=== PATIENT | female | born 1985 | race Caucasian/White ===

== ENCOUNTER → 2020-12-09 | Outpatient (CLI) | payer OTHER ==
--- NOTE | 2020-12-10 11:21 | Diagnostic Imaging Report ---
INDICATION: Routine screening. COMPARISON: No prior mammograms are available for comparison. This is a baseline study. 2-D and 3-D bilateral screening mammography was performed with CAD. Both breasts are heterogeneously dense, limiting the sensitivity of mammography. No mass or malignant appearing microcalcifications are seen. Axillae are unremarkable. IMPRESSION: BI-RADS Category 1 No mammographic features suspicious for malignancy are identified. ACR BI-RADS Category 1: Negative. Result letter will be mailed to the patient. Note: At least 10% of breast cancer is not imaged by mammography. Dictated by: Dictated on workstation # [id number]
== END ==
LOC: RAD 15:31
PROVIDERS: ATTEND Obstetrics & Gynecology
DX: Z12.31 Encounter for screening mammogram for malignant neoplasm of breast (principal)
CPT/HCPCS: 77063; 77067

== ENCOUNTER 2022-05-30 05:39 | Outpatient (CLI) | payer OTHER ==
[~2022-05-30] VITALS: Ht 167.7 cm; Wt 71.5 kg
== END 2022-05-30 12:38 | disposition home or self-care (01) ==
LOC: PREOP 05:39
PROVIDERS: ATTEND Obstetrics & Gynecology
DX: Z01.818 Encounter for other preprocedural examination (principal)

== ENCOUNTER 2022-06-01 05:53 | Day surgery (SDC) | payer OTHER ==
[~2022-06-01] VITALS: Ht 167 cm; Wt 71.5 kg
[2022-06-01] VITALS (9 sets, daily range): BP systolic 108–119; BP diastolic 69–90
[2022-06-01] MEDS ORDERED: ceFAZolin INJECTION 1,000 MG VIAL IV ONE (06:15)
[2022-06-01] MEDS ORDERED: ceFAZolin 1 GM/NS 50 ML (SDC/OR ONLY) IV ONE ×2 (06:30)
[2022-06-01 06:37] LABS: BASOPHILS % (AUTO) 1 % (0-10); EOSINOPHILS # (AUTO) 0.2 10^3/uL (0.0-0.3); EOSINOPHILS % (AUTO) 4 % (0-10); HEMATOCRIT 36 % (35-52); HEMOGLOBIN 12.3 g/dL (11.5-16.0); LYMPHOCYTES # (AUTO) 1.5 10^3/uL (1.0-4.0); LYMPHOCYTES % (AUTO) 26 % (12-44); MEAN CORPUSCULAR HEMOGLOBIN 32 pg (25-34); MEAN CORPUSCULAR HGB CONC 34 g/dL (32-36); MEAN CORPUSCULAR VOLUME 92 fL (80-99); MEAN PLATELET VOLUME 10.6 fL (9.0-12.2); MONOCYTES # (AUTO) 0.8 10^3/uL (0.0-1.0); MONOCYTES % (AUTO) 14 % (0-12); NEUTROPHILS # (AUTO) 3.1 10^3/uL (1.8-7.8); NEUTROPHILS % (AUTO) 55 % (42-75); PLATELET COUNT 255 10^3/uL (130-400); WHITE BLOOD COUNT 5.7 10^3/uL (4.3-11.0)
[2022-06-01] MEDS: LACTATED RINGERS 1,000 ML IV PRN ×2 (06:50→07:50)
[2022-06-01] MEDS ORDERED: ONDANSETRON 4 MG/2 ML (SDV) Z0FRAN ONE (07:02)
[2022-06-01] MEDS ORDERED: proPOfol 200 MG/20 ML (DIPRIVAN) VIAL IV ONE (07:02)
[2022-06-01] MEDS ORDERED: fentaNYL INJ 100 MCG/2 ML AMP ONE (07:02)
[2022-06-01] MEDS ORDERED: MIDAZOLAM 2 MG/2 ML (VERSED) VIAL ONE (07:02)
[2022-06-01] MEDS ORDERED: LIDOCAINE PF 2% 5 ML (XYLOCAINE) VIAL ONE (07:02)
--- NOTE | 2022-06-01 07:04 | Progress Note-Pre Operative ---
Pre-Operative Progress Note Date of Available H&P: Jun 01, 2022 Date H&P Reviewed: Jun 01, 2022 Time H&P Reviewed: 07:04 History & Physical: H&P Reviewed, No changes noted Pre-Operative Diagnosis: Blighted ovum/missed miscarriage MARY HALL MD Jun 01, 2022 07:04
--- NOTE | 2022-06-01 07:05 | Progress Note-Post Operative ---
Post-Operative Progess Note Surgeon (s)/State'S Attorney (s) Surgeon MARY HALL MD State'S Attorney: None Pre-Operative Diagnosis Blighted ovum/missed miscarriage Post-Operative Diagnosis Same with pathology pending Procedure & Operative Findings Date of Procedure 06/01/22 Procedure Performed/Findings D&C for first trimester missed miscarriage Anesthesia Type General Estimated Blood Loss Estimated blood loss (mL): 200cc Specimens/Packing Specimens Removed Uterine contents/products of conception MARY HALL MD Jun 01, 2022 07:05
--- NOTE | 2022-06-01 07:07 | Discharge Inst-Surgical ---
Discharge Inst-Surgical Depart Medication/Instructions New, Converted or Re-Newed RX: Other Consults/Follow Up Patient Instructions: As directed Orders & Referrals Follow Up Appt: Call to make follow up appt. for patient in 2 weeks. Activity: as tolerated. Diet: As tolerated shower or tub bathe as desired. No driving for 24 hours, no alcoholic beverages for 24 hours, and nothing per v agina (no tampons, douching, or intercoarse) for 2 weeks. Patient to return to the clinic as soon as possible for: Temperature greater than 101F, Severe Pain, Foul discharge from incision or vagina, Excessive Bleeding (more than a period). Activity Activity as Tolerated: No Diet Discharge Diet: No Restrictions MARY HALL MD Jun 01, 2022 07:07
[2022-06-01] MEDS ORDERED: ONDANSETRON 4 MG/2 ML (SDV) Z0FRAN IVP PRN ×2 (07:15→08:00)
[2022-06-01] MEDS ORDERED: D5 LR IV SOLUTION 1,000 ML IV SCH (07:15)
[2022-06-01] MEDS ORDERED: fentaNYL INJ 100 MCG/2 ML AMP IVP PRN (07:15)
[2022-06-01] MEDS ORDERED: oxyCODONE/APAP 5/325MG (PERCOCET 5) TABLET PO PRN (07:15)
[2022-06-01] MEDS ORDERED: KETOROLAC 30 MG/ML VIAL IVP ONE (07:15)
[2022-06-01] MEDS ORDERED: SEVOFLURANE (ULTANE) 15 ML INHAL SOLN ONE (07:39)
[2022-06-01] MEDS ORDERED: morphine INJ 10 MG/ML 1ML (SYR OR VIAL) IVP ONE (08:00)
--- NOTE | 2022-06-01 13:03 | OPERATIVE REPORT ---
DATE OF SERVICE: 06/01/2022 PREOPERATIVE DIAGNOSES: First trimester missed /blighted ovum. POSTOPERATIVE DIAGNOSES: First trimester missed /blighted ovum. OPERATIVE PROCEDURE: D and C for missed AB first trimester. OPERATIVE DESCRIPTION: With the patient in the supine position under satisfactory general anesthesia, she was repositioned in dorsal lithotomy position in the [place] stirrups and prepped and draped in the usual fashion for vaginal surgery. The patient had voided before coming to the operating room. Weighted speculum placed in posterior fornix of vagina, cervix exposed and grasped anteriorly with single tooth tenaculum. Uterus sounded to 12 cm with uterine sound. Cervix was then serially dilated with Travis dilators to a #20 Travis, then a #90 and Hegar dilator was the final step in dilation. A #10 curved suction curette was introduced in the uterine cavity curettaged in all 4 quadrants using suction evacuation with removal of a large to moderate amount of tissue, trophoblastic appearing residual blood clot and debris. The endometrial cavity was then sharply curettaged in all 4 quadrants to good uterine cry. The curved suction curette was reintroduced, and all blood clot and debris evacuated from the uterus. The tenaculum was removed. There was minimal bleeding from the cervical os. There was a little bit of bleeding from the puncture sites from the tenaculum that was touched with silver nitrate to effect hemostasis. With hemostasis assured, the uterus decreased in size from about 10 to 12 weeks 8 weeks or so now and nicely contracted and minimal bleeding. The procedure was terminated. Sponge and needle counts were correct. Blood loss was around 200 mL. The patient tolerated the procedure well and was uneventfully awakened from her general anesthesia and transferred to recovery room in stable condition with plans for discharge home PAR. Job ID: [id number] DocumentID: [id number] Dictated Date: 06/01/2022 07:35:51 [employer] Date: 06/01/2022 13:02:34 Dictated By: MARY HALL MD
--- NOTE | 2022-06-01 13:08 | Anesthesia-General Post-Op ---
General Patient Condition Mental Status/LOC: Same as Preop Cardiovascular: Satisfactory Nausea/Vomiting: Absent Respiratory: Satisfactory Pain: Controlled Complications: Absent Post Op Complications Complications None Follow Up Care/Instructions Patient Instructions None needed. Anesthesia/Patient Condition Patient Condition Patient was doing well this morning after the procedure with no complaints, stable vital signs, no apparent adverse anesthesia problems. No complications reported per nursing. EVON QUICK DO Jun 01, 2022 13:08
== END 2022-06-01 09:10 | disposition home or self-care (01) ==
LOC: SDC 05:53
PROVIDERS: ATTEND Obstetrics & Gynecology
DX: O02.1 Missed abortion (principal)
CPT/HCPCS: 36415; 85025; 87081

== ENCOUNTER → 2023-01-24 | Outpatient (CLI) | payer OTHER ==
--- NOTE | 2023-01-24 13:18 | Diagnostic Imaging Report ---
INDICATION: Anatomy scan. TECHNIQUE: Multiple Real-time grayscale images were obtained over the gravid uterus. COMPARISON: None. FINDINGS: There is a single live fetus in a transverse presentation with the head to the maternal left. The heart rate was recorded at 149 BPM. The placenta is posterior. The placenta appears to be in a marginal location with the tip approximately 1 cm from the internal cervical os. The amniotic fluid index is 12.4 cm. The kidneys, bladder, and stomach are unremarkable. The brain is unremarkable. There is a four-chamber heart. There is a three-vessel cord with normal insertion. The spine is unremarkable. Biometrical measurements are as follows: Biparietal 4.88 cm, age 20 weeks 6 days. Head circumference 18.34 cm, age 20 weeks 5 days. Abdominal circumference 15.67 cm, age 20 weeks 6 days. Femur length 3.40 cm, age 20 weeks 5 days. Sonographic estimate age: 20 weeks 6 days. Sonographic estimated date of delivery: 06/07/2023. Estimated Weight: 375 gm (+/- 55 gm). LMP percentile: 79%. heart rate: 149 beats per minute. number: 1 of 1. IMPRESSION: Single live IUP of 20 weeks 6 days gestational age with an estimated date of confinement sonographically of 06/07/2023. There is a posterior placenta in a marginal location. The study is otherwise unremarkable. Dictated by: Dictated on workstation # [id number]
== END ==
LOC: RAD 09:25
PROVIDERS: ATTEND Nurse Practitioner Women's Health
DX: Z34.92 Encounter for supervision of normal pregnancy, unspecified, second trimester (principal); Z3A.20 20 weeks gestation of pregnancy
CPT/HCPCS: 76805